=== PATIENT | female | born 1985 | race Caucasian/White ===

== ENCOUNTER 2018-09-13 00:01 | Emergency (ER) | payer BC ==
[~2018-09-13] VITALS: Ht 167.6 cm; Wt 57.7 kg
[2018-09-13 00:22] VITALS: Ht 167.6 cm; Wt 57.7 kg
[2018-09-13] MEDS ORDERED: TRAZODONE HCL150 MG PO (00:23)
[2018-09-13] MEDS ORDERED: BUSPAR5 MG PO (00:23)
[2018-09-13] MEDS ORDERED: VALTREX500 MG PO (00:24)
[2018-09-13] MEDS ORDERED: GLUCOSAMINE HC500 MG PO (00:24)
[2018-09-13 01:26] LABS: APPEARANCE CLEAR (CLEAR); COLOR YELLOW (YELLOW)
[2018-09-13 01:27] LABS: BILIRUBIN NEGATIVE (NEGATIVE); GLUCOSE NEGATIVE (NEGATIVE); HCG URINE NEGATIVE (NEGATIVE); KETONE LARGE mg/dL (NEGATIVE); NITRITE NEGATIVE (NEGATIVE); PROTEIN NEGATIVE (NEGATIVE); UROBILINOGEN NORMAL (NORMAL)
[2018-09-13 02:27] VITALS: BP 107/48
== END 2018-09-13 02:29 | disposition home or self-care (01) ==
LOC: D.ER 00:01
PROVIDERS: Emergency Medicine
DX: R11.10 Vomiting, unspecified (principal); R19.7 Diarrhea, unspecified; F17.200 Nicotine dependence, unspecified, uncomplicated